=== PATIENT | female | born 1980 | race Two or more races ===

== ENCOUNTER 2025-01-30 21:46 | Emergency (ER) | payer MEDICAID ==
[~2025-01-30] VITALS: Ht 167.6 cm; Wt 63.5 kg
[2025-01-30] MEDS ORDERED: ONDANSETRON HCL/PF 4 MG/2 ML VIAL ONE (22:41)
[2025-01-30] MEDS ORDERED: MORPHINE SULFATE INJ 4 MG/ML DISP.SYRIN ONE (22:42)
[2025-01-30] MEDS ORDERED: CT SWABBABLE VALVE TRANS SET 1 EA INFUS.SET MC ONE (22:47)
[2025-01-30] MEDS ORDERED: IV NS 0.9% 250 ML IV ONE (22:47)
[2025-01-30] MEDS ORDERED: IOHEXOL-300 100 ML VIAL IV ONE (22:47)
[2025-01-30] MEDS: IV NS 0.9% 500 ML BAG IV ONE (22:54)
[2025-01-30] MEDS: ONDANSETRON HCL/PF 4 MG/2 ML VIAL IVP ONE (22:55)
[2025-01-30] MEDS: MORPHINE SULFATE INJ 2 MG/ML DISP.SYRIN IV ONE (22:55)
[2025-01-30 23:11] LABS: ASPARTATE AMINOTRANSFERASE 18.0 U/L (15-37); CALCIUM, SERUM 9.3 mg/dL (8.5-10.1); CREATININE 0.6 mg/dL (0.6-1.3); INR 1.0 (0.91-1.10); SODIUM SERUM 140.0 mmol/L (136-145); TOTAL PROTEIN, SERUM 7.9 g/dL (6.4-8.2); UREA NITROGEN, BLOOD 19.0 mg/dL (7-18)
[2025-01-31 00:31] LABS: PLATELET COUNT (AUTO) 257 K/uL (150-450); RED BLOOD CELL COUNT(AUTO) 4.43 MIL/uL (4.0-5.2); RED CELL DISTRIBUTION WIDTH 12.9 % (11.5-15.0); WHITE BLOOD COUNT (AUTO) 10.8 K/uL (4.3-11.0)
[2025-01-31] MEDS ORDERED: IBUP-1957 PO (00:58)
[2025-01-31] MEDS ORDERED: AMOX-430 PO (00:58)
[2025-01-31] MEDS ORDERED: AMOX/CLAVULANATE 875 MG TABLET ONE (01:02)
[2025-01-31] MEDS: AMOX/CLAVULANATE 875 MG TABLET PO ONE (01:04)
[2025-01-31 01:36] VITALS: BP 125/82; TEMP 98.1; O2SAT 100
== END 2025-01-31 01:36 | disposition home or self-care (01) ==
LOC: ER 21:54
DX: S02.2XXA Fracture of nasal bones, initial encounter for closed fracture (principal); S13.4XXA Sprain of ligaments of cervical spine, initial encounter; S30.11XA Contusion of abdominal wall, initial encounter; S29.012A Strain of muscle and tendon of back wall of thorax, initial encounter; S20.319A Abrasion of unspecified front wall of thorax, initial encounter; S39.012A Strain of muscle, fascia and tendon of lower back, initial encounter; Z79.1 Long term (current) use of non-steroidal anti-inflammatories (NSAID); W22.09XA Striking against other stationary object, initial encounter; Y93.89 Activity, other specified; Y92.410 Unspecified street and highway as the place of occurrence of the external cause; Y99.9 Unspecified external cause status
CPT/HCPCS: 99285; 72125; 96374; 71045; 96361; 96375; 70450; 72131; 72128; 70486; 74177; 85025; 80048; 80076; 36415; 85730; J2270; J2405; J7050; Q9967